=== PATIENT | male | born 1980 | race Caucasian/White ===

== ENCOUNTER 2021-07-02 14:04 | Emergency (ER) | payer MEDICAID, OTHER ==
[~2021-07-02] VITALS: Ht 180.3 cm; Wt 81.8 kg
[2021-07-02 14:31] VITALS: BP 164/103
== END 2021-07-02 16:06 | disposition home or self-care (01) ==
LOC: ER 14:05
DX: S29.012A Strain of muscle and tendon of back wall of thorax, initial encounter (principal); S40.012A Contusion of left shoulder, initial encounter; R07.89 Other chest pain; V00.131A Fall from skateboard, initial encounter; Y93.89 Activity, other specified; Y92.89 Other specified places as the place of occurrence of the external cause; Y99.8 Other external cause status
CPT/HCPCS: 71250; 73030; 99284

== ENCOUNTER 2022-11-27 22:11 | Emergency (ER) | payer MEDICAID, OTHER ==
[~2022-11-27] VITALS: Ht 180.3 cm; Wt 81.8 kg
[2022-11-27 22:28] VITALS: BP 147/91
[2022-11-28] MEDS ORDERED: TETanus/Pertussis (Acell)/Diphther VAC/PF (Tdap-Adult) 0.5ml syringe IMVAC ONE (01:20)
[2022-11-28] MEDS ORDERED: LIDOcaine 1% W/epiNEPHrine 1:100,000 20ml vial IJ ONE (01:20)
--- NOTE | 2022-11-28 01:32 | NUR ---
bautista at bedside for er
[2022-11-28] MEDS ORDERED: AMOX-115 PO (02:03)
--- NOTE | 2022-11-28 02:38 | NUR ---
dressing applied to wound
== END 2022-11-28 02:39 | disposition home or self-care (01) ==
LOC: ER 22:12
DX: S41.111A Laceration without foreign body of right upper arm, initial encounter (principal); F17.200 Nicotine dependence, unspecified, uncomplicated; F12.90 Cannabis use, unspecified, uncomplicated; Z91.013 Allergy to seafood; Z79.899 Other long term (current) drug therapy; W54.0XXA Bitten by dog, initial encounter; Y93.89 Activity, other specified; Y92.89 Other specified places as the place of occurrence of the external cause; Y99.8 Other external cause status
CPT/HCPCS: 73090; 90471; 90715; 99283; J3490; J7030; A6449

== ENCOUNTER 2023-09-01 17:45 | Emergency (ER) | payer MEDICAID ==
[~2023-09-01] VITALS: Ht 180.3 cm; Wt 85.5 kg
[2023-09-01 17:46] VITALS: BP 146/94; PULSE 89; TEMP 98.6; O2SAT 99
[2023-09-01] MEDS ORDERED: SULF1TAB49 PO (18:03)
[2023-09-01] MEDS ORDERED: MUPI22OI30 TOP (18:03)
[2023-09-01] MEDS ORDERED: CHLO118L TOP (18:04)
[2023-09-01 18:32] VITALS: RESP 18
== END 2023-09-01 18:34 | disposition home or self-care (01) ==
LOC: ER 17:46
DX: L73.9 Follicular disorder, unspecified (principal); L01.00 Impetigo, unspecified; F12.90 Cannabis use, unspecified, uncomplicated; Z91.013 Allergy to seafood
CPT/HCPCS: 99283

== ENCOUNTER 2024-03-19 17:37 | Emergency (ER) | payer MEDICAID ==
[~2024-03-19 17:37] MED LIST: CHLO118L TOP
== END 2024-03-19 18:11 | disposition left against medical advice (07) ==
LOC: ER 17:38
DX: Z00.00 Encounter for general adult medical examination without abnormal findings (principal); Z53.21 Procedure and treatment not carried out due to patient leaving prior to being seen by health care provider